=== PATIENT | female | born 1980 | race American Indian/Alaskan Native ===

== ENCOUNTER 2017-01-18 07:28 | Emergency (ER) | payer MEDICAID ==
[2017-01-18] MEDS ORDERED: MORPHINE IV ONE (08:10)
[2017-01-18] MEDS ORDERED: ZOFRAN IV ONE (08:10)
[2017-01-18] MEDS ORDERED: DILAUDID ONE (08:37)
[2017-01-18] MEDS ORDERED: DILAUDID IV ONE ×2 (08:43→10:00)
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
[2017-01-18 11:44] VITALS: BP 151/101
== END 2017-01-18 11:42 | disposition home or self-care (01) ==
LOC: ED 07:28
DX: S42.021A Displaced fracture of shaft of right clavicle, initial encounter for closed fracture (principal); I10 Essential (primary) hypertension; Z85.850 Personal history of malignant neoplasm of thyroid; V49.59XA Passenger injured in collision with other motor vehicles in traffic accident, initial encounter; Y93.9 Activity, unspecified; Y92.9 Unspecified place or not applicable; Y99.9 Unspecified external cause status
CPT/HCPCS: 29105; 71010; 73000; 96374; 96375; 96376; 99284; J1170; J2270; J2405